=== PATIENT | male | born 1970 | race African-American/Black ===

== ENCOUNTER 2017-11-27 21:27 | Emergency (ER) | payer MEDICAID ==
[~2017-11-27] VITALS: Ht 167.6 cm; Wt 50.0 kg
[2017-11-27] MEDS ORDERED: PLEASE ENTER HEIGHT AND WEIGHT MC SCH (22:00)
[2017-11-27] MEDS ORDERED: LORazepam 1MG TABLET PO ONE (22:00)
[2017-11-27 22:08] LABS: BASOPHILS % (AUTO) 0 % (0-1); EOSINOPHILS # (AUTO) 0.04 x10^3/uL (0-0.4); EOSINOPHILS % (AUTO) 1 % (1-7); LYMPHOCYTES # (AUTO) 1.12 x10^3/uL (1-3.4); LYMPHOCYTES % (AUTO) 16 % (22-44); MD NO; MEAN CORPUSCULAR HEMOGLOBIN 23.8 pg (27.5-34.5); MEAN CORPUSCULAR VOLUME 74.3 fL (81-97); MEAN PLATELET VOLUME 8.2 fL (7.4-10.4); MONOCYTES % (AUTO) 10 % (2-9); NEUTROPHILS # (AUTO) 5.08 x10^3/uL (1.8-6.8); NEUTROPHILS % (AUTO) 73 % (42-75); PLATELET COUNT 296 x10^3/uL (130-400); RED BLOOD COUNT 5.85 x10^6/uL (4.38-5.82); RED CELL DISTRIBUTION WIDTH 14.6 % (9.4-14.8)
[2017-11-27 22:17] LABS: ANION GAP 7 mmol/L (5-15); CALCIUM 9.7 mg/dL (8.5-10.1); CHLORIDE 109 mmol/L (98-107); CREATININE 1.09 mg/dL (0.7-1.3)
[2017-11-27 22:18] LABS: AMPHETAMINE SCREEN, URINE Positive (Negative); BARBITURATE SCREEN, URINE Negative (Negative); BENZODIAZEPINE SCREEN, URINE Negative (Negative); CANNABINOID SCREEN, URINE Negative (Negative); COCAINE SCREEN, URINE Negative (Negative); METHADONE SCREEN, URINE Negative (Negative); OPIATE SCREEN, URINE Negative (Negative)
[2017-11-27 22:18] LABS: SALICYLATE LEVEL < 1.7 mg/dL (2.8-20.0)
[2017-11-27 22:19] LABS: ACETAMINOPHEN < 2 mcg/mL (10-30)
[2017-11-28] MEDS ORDERED: DIVA125T2 PO (02:32)
[2017-11-28] MEDS ORDERED: CYCL5TAB PO (02:32)
[2017-11-28] MEDS ORDERED: ZOLP-413 PO (02:32)
[2017-11-28 04:39] VITALS: BP 116/74
== END 2017-11-28 06:28 | disposition home or self-care (01) ==
LOC: ED 22:09
DX: F31.9 Bipolar disorder, unspecified (principal); F43.9 Reaction to severe stress, unspecified; Z72.9 Problem related to lifestyle, unspecified; Z59.0 Homelessness; Z79.899 Other long term (current) drug therapy
CPT/HCPCS: 36415; 80048; 80307; 80329; 82040; 85025; 99284; G0480